=== PATIENT | female | born 1970 | race Two or more races ===

== ENCOUNTER 2024-04-24 12:48 | Outpatient (REF) | payer OTHER, SELFPAY ==
--- NOTE | ~2024-04-24 | MM_ITS ---
EXAMINATION: MM SCREENING DIGITAL BREAST TOMOSYNTHESIS, BILATERAL CLINICAL INFORMATION: Screening. Asymptomatic. COMPARISON: Mammography: No prior imaging available for comparison. TECHNIQUE: Digital breast mammography with tomosynthesis is performed in both the craniocaudal and mediolateral oblique views along with computer-aided detection (CAD). FINDINGS: The breasts are extremely dense, which lowers the sensitivity of mammography (ACR BI-RADS breast composition Category d). There are no significant masses, abnormal calcifications, or other abnormalities. MM/MM tomosynthesis screening BI IMPRESSION: No mammographic evidence of malignancy. ASSESSMENT: BI-RADS BI-RADS 1 - Negative RECOMMENDATION: Routine annual mammography screening. 1 year F/U This examination should not preclude the clinical evaluation of a suspicious palpable abnormality. This patient's information was entered into a reminder system with a target due date for their next mammogram. Electronically signed by: Ivelisse Boucher DO 05/05/2024 09:21 AM EDT
== END 2024-04-24 12:49 | disposition home or self-care (01) ==
LOC: HO.MAMMO 12:48
PROVIDERS: PCP Internal Medicine; Visit Provider Internal Medicine
DX: Z12.31 Encounter for screening mammogram for malignant neoplasm of breast (principal)
CPT/HCPCS: 77063; 77067

== ENCOUNTER → 2024-04-24 13:30 | Outpatient (BNV) | payer OTHER, SELFPAY | PROVIDERS: PCP Internal Medicine; Visit Provider Internal Medicine | DX: Z12.31 Encounter for screening mammogram for malignant neoplasm of breast (principal) | CPT/HCPCS: 77063; 77067 ==

== ENCOUNTER 2024-05-01 06:26 | Outpatient (REF) | payer OTHER, SELFPAY ==
[2024-05-01 06:42] LABS: MANUAL DIFF FLAG NO
[2024-05-01 07:22] LABS: Basophils Absolute Auto 0.1 X10*3/uL (0.0-0.2); Basophils Percent Auto 0.8 % (0-2); Eosinophils Absolute Auto 0.3 X10*3/uL (0.0-0.4); Hematocrit 42.4 % (37.0-47.0); Imm Gran Abs Auto 0.03 X10*3/uL (0.00-0.03); Imm Gran Pct Auto 0.5 % (0.0-0.4); Lymphocytes Absolute Auto 2.4 X10*3/uL (1.2-4.9); Lymphocytes Percent Auto 40.1 % (20-40); Mean Corpuscular Hemoglobin 30.8 pg (27.0-33.0); Mean Corpuscular Volume 93.2 fL (80.0-98.0); Mean Platelet Volume 9.9 fL (9.4-12.3); Monocytes Absolute Auto 0.5 X10*3/uL (0.1-1.2); Monocytes Percent Auto 8.1 % (2-11); Neutrophils Absolute Auto 2.8 x10*3/uL (2.0-8.3); Neutrophils Percent Auto 45.5 % (45-73); Platelet Count 351 X10*3/uL (160-400); Red Blood Count 4.55 X10*6/uL (4.20-5.50); Red Cell Distribution Width 12.1 % (11.0-16.0)
[2024-05-01 07:53] LABS: Alanine Aminotransferase 15 U/L (0-31); Albumin Level 4.5 g/dL (3.5-5.0); Alkaline Phosphatase 73 U/L (39-117); Anion Gap 13 (12-20); Aspartate Amino Transferase 18 U/L (5-31); Bilirubin Total 0.6 mg/dL (0.0-1.0); Blood Urea Nitrogen 12 mg/dL (9-16); Calcium 10.6 mg/dL (8.4-10.2); Carbon Dioxide 28 mmol/L (22-29); Chloride 106 mmol/L (96-108); Cholesterol 256 mg/dL (<200); Estimated Glomerular Filt Rate > 60; Glucose Random 98 mg/dL (60-115); HDL Cholesterol 68 mg/dL (>40); LDL Cholesterol Calculated 174 mg/dL (<100); Potassium 4.9 mmol/L (3.3-5.1); Sodium 142 mmol/L (135-145); Total Protein 7.7 g/dL (6.5-8.0); Triglycerides 70 mg/dL (<150)
[2024-05-01 07:59] LABS: Thyroid Stimulating Hormone 2.22 uIU/mL (0.32-4.0)
== END 2024-05-01 06:27 | disposition home or self-care (01) ==
LOC: HO.LAB 06:26
PROVIDERS: PCP Internal Medicine; Visit Provider Internal Medicine
DX: Z00.00 Encounter for general adult medical examination without abnormal findings (principal); R63.6 Underweight; Z82.3 Family history of stroke; Z90.49 Acquired absence of other specified parts of digestive tract
CPT/HCPCS: 36415; 80053; 80061; 84443; 85025

== ENCOUNTER 2024-08-01 06:26 | Outpatient (REF) | payer OTHER, SELFPAY ==
[2024-08-01 07:31] LABS: Alanine Aminotransferase 20 U/L (0-31); Albumin Level 4.3 g/dL (3.5-5.0); Alkaline Phosphatase 69 U/L (39-117); Anion Gap 11 (12-20); Aspartate Amino Transferase 26 U/L (5-31); Bilirubin Total 0.8 mg/dL (0.0-1.0); Blood Urea Nitrogen 10 mg/dL (9-16); Carbon Dioxide 26 mmol/L (22-29); Chloride 106 mmol/L (96-108); Cholesterol 200 mg/dL (<200); Estimated Glomerular Filt Rate > 60; Glucose Random 91 mg/dL (60-115); HDL Cholesterol 68 mg/dL (>40); LDL Cholesterol Calculated 120 mg/dL (<100); Potassium 4.3 mmol/L (3.3-5.1); Sodium 139 mmol/L (135-145); Total Protein 7.4 g/dL (6.5-8.0); Triglycerides 61 mg/dL (<150)
== END 2024-08-01 06:27 | disposition home or self-care (01) ==
LOC: HO.LAB 06:26
PROVIDERS: PCP Internal Medicine; Visit Provider Internal Medicine
DX: E78.00 Pure hypercholesterolemia, unspecified (principal); R63.5 Abnormal weight gain; Z82.3 Family history of stroke; Z90.49 Acquired absence of other specified parts of digestive tract
CPT/HCPCS: 36415; 80053; 80061

== ENCOUNTER 2024-09-29 07:35 | Day surgery (SDC) | payer OTHER, SELFPAY ==
[2024-09-27 14:15] VITALS: BMI 18.8
--- NOTE | 2024-09-28 09:20 | HO.ANESPROP2 ---
Documented by User: Cherry Yepez NP 09/28/24 09:20 HPI - Anesthesia Eval Consult details Narrative: 54yo F for Colonoscopy [facility] Past Medical History Medical History (Updated 09/27/24 @ 14:11 by Kathie Guerrero RN) GI bleed Hyperlipidemia Surgical History Surgical History (Updated 09/27/24 @ 14:13 by Kathie Guerrero RN) History of laparoscopy History of bilateral tubal ligation Social History Social History Advance Directives: No Advance Directives Information Provided: Yes Meds Allergies Allergy/AdvReac Type Severity Reaction Status Date / Time No Known Allergies Allergy Verified 09/27/24 14:08 Home Medications ?Medication ?Instructions ?Recorded ?Confirmed ?Last Taken ?Type atorvastatin 20 mg tablet 20 mg PO DAILY 09/27/24 09/27/24 Unknown History Exam Height,Weight and Vital Signs: Height 4 ft 9 in Weight 39.463 kg Assessment and Plan Assessment Anesthesia Assessment: Chart Reviewed Documented by User: Amador Angulo MD 09/29/24 10:40 [facility] Past Medical History Medical History (Updated 09/27/24 @ 14:11 by Kathie Guerrero RN) GI bleed Hyperlipidemia Family History Family history of problems with anesthesia: No Surgical History Surgical History (Updated 09/27/24 @ 14:13 by Kathie Guerrero RN) History of laparoscopy History of bilateral tubal ligation History of Problems with Anesthesia: No Social History Social History Advance Directives: No Advance Directives Information Provided: Yes Meds Allergies Allergy/AdvReac Type Severity Reaction Status Date / Time No Known Allergies Allergy Verified 09/27/24 14:08 Home Medications ?Medication ?Instructions ?Recorded ?Confirmed ?Last Taken ?Type atorvastatin 20 mg tablet 20 mg PO DAILY 09/27/24 09/27/24 Unknown History Exam Airway Mallampati Class: I TM Dist: >3cm Neck ROM: Full Partial: Lower Heart: ok Lungs: ok Assessment and Plan Assessment Anesthesia Assessment: Anesthesia Plan Discussed Final Anesthetic Review Family History of Problems with Anesthesia: No History of Problems with Anesthesia: No NPO: Yes ASA Class: II Final Preanesthetic Review: No Changes in Pt Med Stat, Meds/Allgs Chart Reviewed, Consent Obtained/Reviewed and Anes Risks/Benef Reviewed Patient Risk: Intermediate Procedure Risk: Low Anesthetic Plan Anesthetic Plan: MAC: and Agree w/ Assess. and Plan Disposition: Standard PACU
[2024-09-29 10:37] VITALS: BP 98/63; PULSE 72; RESP 16; TEMP 36.7; O2SAT 99
[2024-09-29] MEDS: Lactated Ringers 1,000 ML 100 ML IVCONT (10:41)
[2024-09-29 12:45] VITALS: BP 96/57; PULSE 74; RESP 18; TEMP 36.4; O2SAT 99
--- NOTE | 2024-09-29 12:46 | PM.OP ---
Brief Operative Note Date of Service: 09/29/24 Pre-op diagnosis: Screening Post-op diagnosis: other (Diverticulosis, Normal anastomosis at 10cm) Procedure: Colonoscopy to the cecum and TI Surgeon: Shreyas Nguyen MD Anesthesia: MAC Was an Environmental Health Aide used for this Procedure?: No Estimated blood loss (mL): 0 Pathology: none sent Condition: stable Disposition: PACU
[2024-09-29 13:00] VITALS: BP 100/69; PULSE 84; RESP 16; TEMP 36.4; O2SAT 97
--- NOTE | 2024-09-29 23:38 | OP_ITS ---
DATE OF SERVICE: 09/29/2024 SURGEON: Shreyas Nguyen MD INDICATIONS: The patient presents for evaluation of previous history of a reported colon polyp. Full consent has been obtained from her for this, including risks of bleeding and perforation. PREOPERATIVE DIAGNOSIS: Reported history of colon polyp and colorectal cancer screening. POSTOPERATIVE DIAGNOSIS: PROCEDURE PERFORMED: Colonoscopy to cecum and terminal ileum. ESTIMATED BLOOD LOSS: COMPLICATIONS: ANESTHESIA: Monitored anesthesia care. ASSISTANTS: SPECIMENS: POSTOPERATIVE DIAGNOSES: Reported history of colon polyp and colorectal cancer screening, internal hemorrhoids, occasional diverticulosis. DESCRIPTION OF PROCEDURE: The patient was placed in the left lateral decubitus position. The digital rectal exam revealed no abnormalities. The Olympus video pediatric colonoscope was entered into the rectum and advanced easily to the cecum. Once in the cecum, I did identify normal-appearing cecal pouch with appendiceal orifice and a normal-appearing ileocecal valve. The terminal ileum was cannulated and appeared normal. Scope was withdrawn back in the colon. The entire cecum and ileocecal valve appeared normal. The scope was slowly withdrawn assessing all mucosal surfaces carefully. Preparation was excellent. There were occasional diverticula noted in the descending colon. I did not visualize any sign of polyps, colitis, nor angiodysplasia. An anastomosis was noted at approximately 10 to 12 cm. This appeared normal without any sign of narrowing. In the rectum, the scope was retroflexed visualizing internal hemorrhoids, but no other pathology. The rectal mucosa appeared normal. The scope was straightened and withdrawn from the patient. She tolerated the procedure well and was returned to the recovery area in stable condition. IMPRESSION: 1. Occasional diverticulosis. 2. Internal hemorrhoids. 3. Normal anastomosis at approximately 10 cm. PLAN: Given the reported history of a previous polyp removed, I would recommend a repeat colonoscopy in 5 years. Given the location of the anastomosis, it appears that she had a sigmoid resection, which may speak for a previous diverticular bleed as opposed to a bleed from a large polyp. However, without the specific information available, I would recommend a followup colonoscopy in 5 years rather than 10 years. She will otherwise see me on a p.r.n. basis. This has been discussed with her . MD LESIA Finch/MOO / [phone] MTDVimal
== END 2024-09-29 13:20 | disposition home or self-care (01) ==
PROVIDERS: PCP Internal Medicine; Visit Provider Internal Medicine
PROC: 0DJD8ZZ Inspection of Lower Intestinal Tract, Via Natural or Artificial Opening Endoscopic (ICD-10-PCS; CPT 45378; principal; 2024-09-29 11:40)
DX: Z12.11 Encounter for screening for malignant neoplasm of colon (principal); Z86.0101 Personal history of adenomatous and serrated colon polyps; K57.30 Diverticulosis of large intestine without perforation or abscess without bleeding; K64.8 Other hemorrhoids; E78.5 Hyperlipidemia, unspecified; Z98.0 Intestinal bypass and anastomosis status; Z90.49 Acquired absence of other specified parts of digestive tract; Z79.899 Other long term (current) drug therapy
CPT/HCPCS: 45378; J2003; J2704

== ENCOUNTER 2025-01-29 06:16 | Outpatient (REF) | payer OTHER, SELFPAY ==
--- OUTSIDE RECORDS SUMMARY | 2025-01-29 06:19 | XMS_ITS | Patient Health Record ---
Author Organization [facility] Address [address] [place] [address] Care Team Providers Care Hazardous Waste Material Technician Name Role Phone Stacey He Primary Care Provider Shreyas Giordano [phone] Allergies No Known Allergies Reason For Referral No Information Medications Medication SIG (Take, Route, Frequency, Duration) Notes Start Date End Date Status Atorvastatin Calcium 20 MG TAKE 1 TABLET BY MOUTH EVERY DAY Oral for 90 Active MiraLax (colon prep) 17 GM/SCOOP 1 238Gm bottle mixed with Gatorade or Crystal Light Orally begin at 5:00 p.m. the day before the procedure for 1 day 06/20/2024 Active Dulcolax (colon prep) 5 MG take at 3:00 p.m and 7:00p.m. Orally two tablets twice a day for one day for 1 day 06/20/2024 Active Immunizations Vaccine Route Administration Date Status Comme nts Influenza Unknown 06/07/2024 Refused Social History Tobacco Use: Social History Observation Description Date Details (start date - stop date) Never Smoker NA - NA Tobacco Use/Smoking Question Answer Notes Patient is a nonsmoker Alcohol Screen Question Answer Notes Did you have a drink containing alcohol in the p ast year? No Points 0 Interpretation Negative Section Notes: No sig alcohol, nonsmoker. [place] Problems Problem Type SNOMED Code ICD Code Onset Dates Problem Status W/U Status Risk Notes Problem Colon cancer screening (099337396) Colon cancer screening (Z12.11) Active confirmed Problem Pre-procedure evaluation check (810548665) Encounter for other preprocedural examination (Z01.818) Active confirmed Problem History of colon polyps (Z86.0100) Active confirmed Vital Signs Temperature 97.8 degrees Fahrenheit 06/07/2024 Blood pressure diastolic 00 mm Hg 06/07/2024 Height 4 ft 9 in in 06/07/2024 Blood pressure systolic 000 mm Hg 06/07/2024 Weight 87 lb 8 oz lbs 06/07/2024 BMI 18.93 kg/m2 06/07/2024 Encounters Encounter Location Date Provider Diagnosis [facility] [place] Out[facility] [address], [place] [id number] 09/29/2024 Shreyas Nguyen Colon cancer screeni ng Z12.11 ; Personal history of colonic polyps Z86.0100 ; Diverticulosis K57.90 and Other hemorrhoids K64.8 [facility] [address] [place] [phone] 06/07/2024 Shreyas Nguyen Colon cancer screeni ng Z12.11 ; Encounter for other preprocedural examination Z01.818 and History of colon polyps Z86.0100 [facility] [address] [place] [phone] 06/07/2024 Shreyas Nguyen Assessments Encounter Date Diagnosis (ICD Code) Assessment Notes Treatment Notes Treatment Clinical Notes Section Notes 09/29/2024 Colon cancer screening (ICD-10 - Z12.11) 09/29/2024 Personal history of colonic polyps (ICD-10 - Z86.0100) 06/07/2024 Colon cancer screening (ICD-10 - Z12.11) Overall, Charles appears well. Given her age, her good clinical appearance, and the report of a colon polyp removed surgically in 2015 without any subsequent colonoscopy followup, I did recommend a colonoscopy for further screening purposes. We did review the rationale for this in regard to colon cancer prevention. Full consent was obtained for this, including risks of bleeding and perforation. The procedure will be done with monitored anesthesia care. We will review the procedure again with the medical device on the day of the procedure. Charles and her were comfortable with this plan. Thank you again for allowing me to participate in Charles's care. I shall continue to keep you advised of her progress. 06/07/2024 Encounter for other preprocedural examination (ICD-10 - Z01.818) Overall, Charles appears well. Given her age, her good clinical appearance, and the report of a colon polyp removed surgically in 2015 without any subsequent colonoscopy followup, I did recommend a colonoscopy for further screening purposes. We did review the rationale for this in regard to colon cancer prevention. Full consent was obtained for this, including risks of bleeding and perforation. The procedure will be done with monitored anesthesia care. We will review the procedure again with the medical device on the day of the procedure. Charles and her were comfortable with this plan. Thank you again for allowing me to participate in Charles's care. I shall continue to keep you advised of her progress. 09/29/2024 Diverticulosis (ICD-10 - K57.90) 06/07/2024 History of colon polyps (ICD-10 - Z86.0100) Overall, Charles appears well. Given her age, her good clinical appearance, and the report of a colon polyp removed surgically in 2015 without any subsequent colonoscopy followup, I did recommend a colonoscopy for further screening purposes. We did review the rationale for this in regard to colon cancer prevention. Full consent was obtained for this, including risks of bleeding and perforation. The procedure will be done with monitored anesthesia care. We will review the procedure again with the medical device on the day of the procedure. Charles and her were comfortable with this plan. Thank you again for allowing me to participate in Charles's care. I shall continue to keep you advised of her progress. 09/29/2024 Other hemorrhoids (ICD-10 - K64.8) Plan Of Treatment Future Test Test Name Order Date COLONOSCOPY 06/07/2024 Insurance Providers Payer Name Payer Address Payer Phone Subscriber Number Group Number Insured Name Patient Relationship to Insured Coverage Start Date Coverage End Date [facility] [address] [place] [phone] [id number] NENA SHEIKH CHARLES Self - patient is the insured Medical (General) History Medical History History ICD Code Hyperlipidemia Denies [place],DM,CVA,Lung disease,renal dise ase Surgical History Surgery Date(Month/Year) BTL Lower GI bleed while [place] with subsequent laparoscopy and what sounds like a right colectomy, and with the finding of a benign polyp in the colon as well. 2015
[2025-01-29 08:24] LABS: Alanine Aminotransferase 19 U/L (0-31); Albumin Level 4.4 g/dL (3.5-5.0); Alkaline Phosphatase 78 U/L (39-117); Anion Gap 9 (12-20); Aspartate Amino Transferase 23 U/L (5-31); Bilirubin Total 0.3 mg/dL (0.0-1.0); Blood Urea Nitrogen 16 mg/dL (9-16); Calcium 9.7 mg/dL (8.4-10.2); Carbon Dioxide 27 mmol/L (22-29); Chloride 109 mmol/L (96-108); Cholesterol 247 mg/dL (<200); Estimated Glomerular Filt Rate > 60; Glucose Random 98 mg/dL (60-115); HDL Cholesterol 71 mg/dL (>40); LDL Cholesterol Calculated 163 mg/dL (<100); Sodium 140 mmol/L (135-145); Total Protein 7.3 g/dL (6.5-8.0); Triglycerides 68 mg/dL (<150)
== END 2025-01-29 06:17 | disposition home or self-care (01) ==
LOC: HO.LAB 06:16
PROVIDERS: PCP Internal Medicine; Visit Provider Internal Medicine
DX: E78.00 Pure hypercholesterolemia, unspecified (principal); Z82.3 Family history of stroke
CPT/HCPCS: 36415; 80053; 80061

== ENCOUNTER 2025-04-30 06:14 | Outpatient (REF) | payer OTHER, SELFPAY ==
[2025-04-30 07:35] LABS: Cholesterol 159 mg/dL (<200); HDL Cholesterol 57 mg/dL (>40); Triglycerides 44 mg/dL (<150)
== END 2025-04-30 06:15 | disposition home or self-care (01) ==
LOC: HO.LAB 06:14
PROVIDERS: PCP Internal Medicine; Visit Provider Internal Medicine
DX: Z00.00 Encounter for general adult medical examination without abnormal findings (principal); E78.00 Pure hypercholesterolemia, unspecified; N63.0 Unspecified lump in unspecified breast; Z12.4 Encounter for screening for malignant neoplasm of cervix; Z82.3 Family history of stroke
CPT/HCPCS: 36415; 80061

== ENCOUNTER 2025-06-06 07:36 | Outpatient (REF) | payer OTHER, SELFPAY ==
--- OUTSIDE RECORDS SUMMARY | 2024-09-29 06:40 | XMS_ITS ---
Author Organization [facility] Address [address] [place] [address] Care Team Providers Care Garbage Man Name Role Phone Stacey He Primary Care Provider UnavailShreyas Brambila [phone] REASON FOR VISIT screening,hx polyps Encounters Encounter Location Date Provider Diagnosis [facility] [place] [address] [place] [id number] 09/29/2024 Shreyas Nguyen Colon cancer scree lilly Z12.11 ; Personal history of colonic polyps Z86.0100 ; Diverticulosis K57.90 and Other hemorrhoids K64.8 Assessments Encounter Date Diagnosis (ICD Code) Assessment Notes Treatment Notes Treatment Clinical Notes Section Notes 09/29/2024 Colon cancer screening (ICD-10 - Z12.11) 09/29/2024 Personal history of colonic polyps (ICD-10 - Z86.0100) 09/29/2024 Diverticulosis (ICD-10 - K57.90) 09/29/2024 Other hemorrhoids (ICD-10 - K64.8) Plan Of Treatment No Information Progress Notes * ZEN PATTONLDOB :1970 (55 yo F)Acc No.[id number]:09/29/2024 COLON WITH MAC Patient: Reji KEENANCHARLES HAMPTON Provider: Campbell Nguyen MD :1970 A ge:54 Y S ex:Female Date:09/29/2024 Address:[address] [place] [address] [id number] Pcp:Stacey He Subjective: * Chief Complaints: * 1 . Screening,hx polyps. * Medical History: Objective: * Vitals: Assessment: * Assessment: 1. C olon cancer screening - Z12.11 (Primary) 2 . P ersonal history of colonic polyps - Z86.0100 3 . D iverticulosis - K57.90 4 . O ther hemorrhoids - K64.8 Plan: * Treatment: * Procedure Codes: 4 5378 DIAGNOSTIC COLONOSCOPY, Modifiers: 33 * * The named appointment provid er may or may not be the originator of this progress note, and it is not deemed complete until electronically signed by the appointment provider. Sign off status: Pending * Provider: Campbell Nguyen MD Date: 0 09/29/2024 Generated for Beena rocha/Debi/Corby on: 08/06/2024 07:38 AM EST
--- NOTE | ~2025-06-06 | MM_ITS ---
EXAMINATION: MM SCREENING DIGITAL BREAST TOMOSYNTHESIS, BILATERAL CLINICAL INFORMATION: Screening. Asymptomatic. COMPARISON: April 24, 2024 TECHNIQUE: Digital breast tomosynthesis is performed in mediolateral oblique and craniocaudal views along with computer-aided detection (CAD). Synthesized 2D images are generated from the tomosynthesis. FINDINGS: BREAST COMPOSITION: The breasts are extremely dense, which lowers the sensitivity of mammography. BILATERAL BREASTS: No significant masses, suspicious calcifications or other abnormalities are seen in either breast. MM/MM tomosynthesis screening BI IMPRESSION: BILATERAL BREASTS: Negative, no mammographic evidence of malignancy. Normal interval follow-up is recommended in 12 months. ASSESSMENT: BI-RADS: Category 1: Negative RECOMMENDATION: Routine annual mammography screening. FOLLOW-UP: 1 year F/U This examination should not preclude the clinical evaluation of a suspicious palpable abnormality. This patient's information was entered into a reminder system with a target due date for their next mammogram. Electronically signed by: Henny Pittman MD 06/09/2025 09:57 PM [facility]
--- OUTSIDE RECORDS SUMMARY | 2025-06-06 07:38 | XMS_ITS | Patient Health Record ---
Author Organization [facility] Address [address] [place] [address] Care Team Providers Care Doctorate Of Chiropractic Name Role Phone Stacey He Primary Care Provider Shreyas Giordano [phone] Allergies No Known Allergies Reason For Referral No Information Medications Medication SIG (Take, Route, Frequency, Duration) Notes Start Date End Date Status Atorvastatin Calcium 20 MG TAKE 1 TABLET BY MOUTH EVERY DAY Oral; Duration: 90 Active MiraLax (colon prep) 17 GM/SCOOP 1 238Gm bottle mixed with Gatorade or Crystal Light Orally begin at 5:00 p.m. the day before the procedure; Duration: 1 day 06/20/2024 Active Dulcolax (colon prep) 5 MG take at 3:00 p.m and 7:00p.m. Orally two tablets twice a day for one day; Duration: 1 day 06/20/2024 Active Immunizations Vaccine Route [...] No sig alcohol, nonsmoker. Originally [place] Problems Problem Type SNOMED Code ICD Code Onset Dates Problem Status W/U Status Risk Notes Problem Colon cancer screening (128520370) Colon cancer screening (Z12.11) Active confirmed Problem Pre-procedure evaluation check (405495140) Encounter for other preprocedural examination (Z01.818) Active confirmed Problem History of polyp of colon (situation) (055901694) History of colon polyps (Z86.0100) Active confirmed Vital Signs Temperature 97.8 degrees Fahrenheit 06/07/2024 Blood pressure diastolic 00 mm Hg 06/07/2024 Height 4 ft 9 in in 06/07/2024 Blood pressure systolic 000 mm Hg 06/07/2024 Weight 87 lb 8 oz lbs 06/07/2024 BMI 18.93 kg/m2 06/07/2024 Encounters Encounter Location Date Provider Diagnosis [facility] Out[facility] [address] [place], [place] [phone] 09/29/2024 Shreyas Nguyen Colon cancer screeni ng Z12.11 ; Personal history of colonic polyps Z86.0100 ; Diverticulosis K57.90 and Other hemorrhoids K64.8 [facility] [address] [place] [phone] 06/07/2024 Shreyas Nguyen Colon cancer screeni ng Z12.11 ; Encounter for other preprocedural examination Z01.818 and History of colon polyps Z86.0100 [facility] [address] [place] [phone] 06/07/2024 Shreyas Nguyen Assessments Encounter Date Diagnosis (ICD Code) Assessment Notes Treatment Notes Treatment Clinical Notes Section Notes 09/29/2024 Colon cancer screening (ICD-10 - Z12.11) 09/29/2024 Personal history of colonic polyps (ICD-10 - Z86.0100) 06/07/2024 Colon cancer screening (ICD-10 - Z12.11) Overall, Charles appears well. Given her age, her good clinical appearance, and the report of a colon polyp removed surgically in 2016 without any subsequent colonoscopy followup, I did recommend a colonoscopy for further screening purposes. We did review the rationale for this in regard to colon cancer prevention. Full consent was obtained for this, including risks of bleeding and perforation. The procedure will be done with monitored anesthesia care. We will review the procedure again with the medical information specialist on the day of the procedure. Charles [...] review the procedure again with the medical information specialist on the day of the procedure. Charles [...] review the procedure again with the medical information specialist on the day of the procedure. Charles [...] Insured Coverage Start Date Coverage End Date [facility] [address] [place] [phone] [id number] NENA SHEIKH CHARLES Self - patient is the insured Medical (General) History Medical History History ICD Code Hyperlipidemia Denies [place],DM,CVA,Lung disease,renal dise ase Surgical History Surgery Date(Month/Year) BTL Lower GI bleed while living in the [place] with subsequent laparoscopy and what sounds like a right colectomy, and with the finding of a benign polyp in the colon as well. 2016
--- OUTSIDE RECORDS SUMMARY | 2025-06-06 07:39 | XMS_ITS | Clinical Summary ---
Author Organization [facility] Address [address] [place] [address] Phone Care Team Providers Care Automotive Tire Worker Name Role Phone Physician, Pcp Unknown Primary Care Provider Irene vailable Social History Tobacco Use Types Packs/Day Years Used Date Smoking Tobacco: Never Assessed Comments Unknown Sex and Gender Information Value Date Recorded Sex Assigned at Not on file Legal Sex Female 6:31 AM EDT Gender Identity Not on file Sexual Orientation Not on file Plan of Treatment Health Maintenance Due Date Last Done Comments Breast Cancer Screening 1970 Colorectal Cancer Screening: Colonoscopy 1970 DTaP,Tdap,and Td Vaccines (1 - Tdap) 1988 Hepatitis B Vaccines (1 of 3 - 19+ 3-dose series) 1988 Pneumococcal Vaccine: 50+ Ye ars (1 of 1 - PCV) 2019 Zoster Vaccines (1 of 2) 2019 Depression Screening 08/02/2024 HIV Screening 02/07/2025 Hepatitis C Screening 02/07/2025 Social Influencers of Health Screening 02/07/2025 COVID-19 Vaccine ( - 2023-2 5 season) 2025 Influenza Vaccine (#1) 2025 Cervical Cancer Screening: HPV 02/06/2030 02/06/2025 RSV Immunization Adult Patie nts (1 - 1-dose 75+ series) 2044 HIB Vaccines Aged Out No longer eligi ble based on patient's age to complete this topic HPV Vaccines Aged Out No longer eligi ble based on patient's age to complete this topic Hepatitis A Vaccines Aged Out No long er eligible based on patient's age to complete this topic IPV Vaccines Aged Out No longer eligi ble based on patient's age to complete this topic MMR Vaccines Aged Out No longer eligi ble based on patient's age to complete this topic Meningococcal ACWY Vaccine Aged Out N o longer eligible based on patient's age to complete this topic Meningococcal B Vaccine Aged Out No l onger eligible based on patient's age to complete this topic RSV Immunization Patients Un tiera 20 months Aged Out No longer eligible b ased on patient's age to complete this topic Varicella Vaccines Aged Out No longer eligible based on patient's age to complete this topic Procedures Procedure Name Priority Date/Time Associated Diagnosis Comments HPV WITH REFLEX GENOTYPE Routine 02/06/2025 12:00 AM EDT Encounter for screening for malignant neoplasm of cervix from Last 3 Months or Most Recently Relevant to Health Maintenance Results * HPV with reflex genotype (02/06/2025 12:00 AM EDT) HPV Negative Negative LAB MICROBIOLOGY METHOD 02/07/2025 12:25 PM EDT [facility] Brushing/Spatula Cervix uteri structure / Unknown 02/06/2025 02/07/2025 6:35 AM EDT us Stacey He MD LAB MOLECULAR DIAGNOSTICS ORD ERABLES Final Result [facility] [address] [place] [address], from Last 3 Months or Most Recently Relevant to Health Maintenance Insurance [facility] Care Teams Automotive Tire Worker Relationship Specialty Start Date End Date Physician, Pcp Unknown PCP - General 7/9/25
--- OUTSIDE RECORDS SUMMARY | 2025-06-06 07:39 | XMS_ITS | Encounter Summary ---
Author Organization [facility] Address [address] [place] [address] Care Team Providers Care Vice President Business Development Name Role Phone Physician, Pcp Unknown Primary Care Provider Irene vailable Encounter Details Date Type Department Care Team (Late st Contact Info) Description 02/07/2025 Lab Requisition [facility] [address] [place] [address] Stacey He MD [address] [place] [address] [place] Nguyen [phone] Encounter for screening for malignant neoplasm of cervix Social History Tobacco Use Types Packs/Day Years Used Date Smoking Tobacco: Never Assessed Comments Unknown Sex and Gender Information Value Date Recorded Sex Assigned at Not on file Legal Sex Female 6:31 AM EDT Gender Identity Not on file Sexual Orientation Not on file documented as of this encounter Plan of Treatment Not on file documented as of this encounter Procedures Procedure Name Priority Date/Time Associated Diagnosis Comments HPV WITH REFLEX GENOTYPE Routine 02/06/2025 12:00 AM EDT Encounter for screening for malignant neoplasm of cervix PAP SMEAR Routine 02/06/2025 12:00 AM EDT Encounter for screening for malignant neoplasm of cervix documented in this encounter Results * HPV with reflex genotype (02/06/2025 12:00 AM EDT) HPV Negative Negative LAB MICROBIOLOGY METHOD 02/07/2025 12:25 PM EDT [facility] Brushing/Spatula Cervix uteri structure / Unknown 02/06/2025 02/07/2025 6:35 AM EDT us Stacey He MD LAB MOLECULAR DIAGNOSTICS ORD ERABLES Final Result Performing Organization Address [facility]/ZIP Co de Phone Number [facility] [address] [place] [address], * Pap smear (02/06/2025 12:00 AM EDT) Interpretation Negative for intraepithelial lesion or malignancy 02/12/2025 2:18 PM EDT [facility] General Categorization Negative 02/12/2025 2:18 PM EDT [facility] Other Findings Reactive cellular changes associated with inflammation 02/12/2025 2:18 PM EDT [facility] Specimen Adequacy Satisfactory for evaluation, endocervical/perry sformation zone component present 02/12/2025 2:18 PM EDT [facility] Pap Methodology Liquid Based Pap Test 02/12/2025 2:18 PM EDT [facility] Disclaimer The Pap test is a screening test which carries an inherent false negative rate. These test results should be correlated with the patient's clinical findings and history. This Pap test was processed using an automated screening system. Technical cytopathology services provided by [facility], at [address] [place] [address] (CLIA # [id number]/Lane Golden MD, Body Trimmer Upholsterer.) 02/12/2025 2:18 PM EDT [facility] Console Pap Interpretation Reported 02/12/2025 2:18 PM EDT [facility] Brushing/Spatula Cervix uteri structure / Unknown 02/06/2025 02/07/2025 6:35 AM EDT us Stacey He MD LAB CYTOLOGY ORDERABLES Final Result Performing Organization Address City/[facility]/ZIP Co de Phone Number [facility] [address] [place] [address], documented in this encounter Visit Diagnoses Diagnosis Encounter for screening for malignant neoplasm of cervix documented in this encounter Care Teams Vice President Business Development Relationship Specialty Start Date End Date Physician, Pcp Unknown PCP - General 02/07/25 documented as of this encounter
== END 2025-06-06 07:37 | disposition home or self-care (01) ==
LOC: HO.MAMMO 07:36
PROVIDERS: PCP Internal Medicine; Visit Provider Internal Medicine
DX: Z12.31 Encounter for screening mammogram for malignant neoplasm of breast (principal)
CPT/HCPCS: 77063; 77067

== ENCOUNTER → 2025-06-06 07:45 | Outpatient (BNV) | payer OTHER, SELFPAY | PROVIDERS: PCP Internal Medicine; Visit Provider Radiology Body Imaging | DX: Z12.31 Encounter for screening mammogram for malignant neoplasm of breast (principal) | CPT/HCPCS: 77063; 77067 ==